=== PATIENT | female | born 1930 | race Caucasian/White ===

== ENCOUNTER 2016-11-30 14:33 | Inpatient (IN) | payer MEDICARE, OTHER ==
[~2016-11-30] VITALS: Ht 162.6 cm; Wt 84.4 kg
[~2016-11-30 14:33] MED LIST: ALLERGY10 M1 PO; ASPIRIN CHEWABL81 MG PO; BUSPIRONE HCL5 MG PO; CALCIUM 600 +1 EAC3 PO; CARBIDOPA-LEVO1 EAC4 PO; CENTRUM SILVER1 EAC1 PO; CEPHALEXIN500 M1 PO; COLACE 100MG C100 MG PO; COREG 3.125M3.125 MG PO; FUROSEMIDE40 MG PO; HYDRALAZINE HCL25 MG PO; IMDUR ER TAB 6060 MG PO; LANTUS INS100 UTS/M1 SQ; LANTUS SC; LIPITOR TAB 2020 MG PO; LOTEMAX5 ML OP; METOPROLOL SUCC25 MG PO; MOVANTIK25 MG PO; NAMENDA XR28 MG PO; NEURONTIN 100100 MG PO; NITROSTAT 0.40.4 MG SL; NOVOLOG SC; OXYBUTYNIN CHLOR5 MG PO; PLAVIX 75 MG TA75 MG PO; PRILOSEC OTC20 MG PO; PROAIR HFA8.5 GM INH; PROTONIX40 MG PO; SPIRONOLACTONE25 MG PO; SYNTHROID25 MCG PO; TYLENOL 325MG325 MG PO; TYLENOL W/CODEIN1 E1 PO; VITAMIN D32000 UNI1 PO
[2016-11-30] MEDS ORDERED: LANTUS SOL100 UNIT/1 SQ (18:08)
[2016-11-30] MEDS ORDERED: MOVANTIK25 MG PO (18:10)
[2016-11-30 19:27] LABS: HEMOGLOBIN 11.5 gm/dl (12.3-15.3); RED BLOOD COUNT 3.76 M/UL (4.00-5.10); WHITE BLOOD COUNT 13.3 K/UL (4.5-11.0)
[2016-12-01 04:13] LABS: HEMOGLOBIN 11.1 gm/dl (12.3-15.3); RED BLOOD COUNT 3.65 M/UL (4.00-5.10); WHITE BLOOD COUNT 14.7 K/UL (4.5-11.0)
[2016-12-01 04:16] LABS: BUN/CREATININE RATIO 14 (0-10)
[2016-12-02 05:36] LABS: HEMOGLOBIN 11.1 gm/dl (12.3-15.3); RED BLOOD COUNT 3.64 M/UL (4.00-5.10); WHITE BLOOD COUNT 12.7 K/UL (4.5-11.0)
[2016-12-03 06:48] LABS: HEMOGLOBIN 11.2 gm/dl (12.3-15.3); RED BLOOD COUNT 3.7 M/UL (4.00-5.10); WHITE BLOOD COUNT 12.4 K/UL (4.5-11.0)
[2016-12-04 05:30] LABS: HEMOGLOBIN 11.3 gm/dl (12.3-15.3); RED BLOOD COUNT 3.73 M/UL (4.00-5.10)
[2016-12-05 07:29] LABS: HEMOGLOBIN 11.5 gm/dl (12.3-15.3); RED BLOOD COUNT 3.83 M/UL (4.00-5.10); WHITE BLOOD COUNT 10.2 K/UL (4.5-11.0)
[2016-12-06 06:25] LABS: HEMOGLOBIN 11.7 gm/dl (12.3-15.3); RED BLOOD COUNT 3.84 M/UL (4.00-5.10); WHITE BLOOD COUNT 12.1 K/UL (4.5-11.0)
[2016-12-07 05:40] LABS: HEMOGLOBIN 11.5 gm/dl (12.3-15.3); RED BLOOD COUNT 3.8 M/UL (4.00-5.10)
[2016-12-08 08:51] LABS: HEMOGLOBIN 12.9 gm/dl (12.3-15.3)
[2016-12-08 08:53] LABS: RED BLOOD COUNT 4.28 M/UL (4.00-5.10); WHITE BLOOD COUNT 12.5 K/UL (4.5-11.0)
[2016-12-08 09:00] LABS: BUN/CREATININE RATIO 16 (0-10)
[2016-12-10 04:42] LABS: HEMOGLOBIN 11.1 gm/dl (12.3-15.3)
[2016-12-10 04:43] LABS: RED BLOOD COUNT 3.59 M/UL (4.00-5.10); WHITE BLOOD COUNT 8.3 K/UL (4.5-11.0)
[2016-12-12 08:26] LABS: HEMOGLOBIN 11.9 gm/dl (12.3-15.3); RED BLOOD COUNT 3.93 M/UL (4.00-5.10); WHITE BLOOD COUNT 8.1 K/UL (4.5-11.0)
[2016-12-13 05:55] LABS: HEMOGLOBIN 11.2 gm/dl (12.3-15.3); RED BLOOD COUNT 3.64 M/UL (4.00-5.10); WHITE BLOOD COUNT 6.4 K/UL (4.5-11.0)
[2016-12-14 03:44] LABS: HEMOGLOBIN 11.8 gm/dl (12.3-15.3); RED BLOOD COUNT 3.93 M/UL (4.00-5.10); WHITE BLOOD COUNT 5.5 K/UL (4.5-11.0)
[2016-12-14 04:03] LABS: BUN/CREATININE RATIO 10 (0-10)
== END 2016-12-14 13:50 | DRG 853 ==
LOC: MED SURG 4 14:33 → M/S 17:58 → ZEROF 12-01 09:00 → M/S 12-01 09:00
PROVIDERS: Family Medicine; Internal Medicine; ADMIT Emergency Medicine
PROC: 0J990ZZ Drainage of Buttock Subcutaneous Tissue and Fascia, Open Approach (ICD-10-PCS; principal; 2016-12-02)
DX: A41.9 Sepsis, unspecified organism (principal); G93.41 Metabolic encephalopathy; L02.31 Cutaneous abscess of buttock; I50.22 Chronic systolic (congestive) heart failure; N17.9 Acute kidney failure, unspecified; I12.9 Hypertensive chronic kidney disease with stage 1 through stage 4 chronic kidney disease, or unspecified chronic kidney disease; R32 Unspecified urinary incontinence; E11.22 Type 2 diabetes mellitus with diabetic chronic kidney disease; E11.649 Type 2 diabetes mellitus with hypoglycemia without coma; F01.50 Vascular dementia, unspecified severity, without behavioral disturbance, psychotic disturbance, mood disturbance, and anxiety; R56.9 Unspecified convulsions; R21 Rash and other nonspecific skin eruption; E87.6 Hypokalemia; R53.81 Other malaise; R45.1 Restlessness and agitation; N18.3 Chronic kidney disease, stage 3 (moderate); D69.6 Thrombocytopenia, unspecified; R41.0 Disorientation, unspecified; M81.0 Age-related osteoporosis without current pathological fracture; E78.5 Hyperlipidemia, unspecified; E03.9 Hypothyroidism, unspecified; I25.10 Atherosclerotic heart disease of native coronary artery without angina pectoris; I25.5 Ischemic cardiomyopathy; M51.16 Intervertebral disc disorders with radiculopathy, lumbar region; J44.9 Chronic obstructive pulmonary disease, unspecified; F41.9 Anxiety disorder, unspecified; I73.9 Peripheral vascular disease, unspecified; G20 Parkinson's disease; Z95.1 Presence of aortocoronary bypass graft; Z95.5 Presence of coronary angioplasty implant and graft; Z96.1 Presence of intraocular lens; Z88.8 Allergy status to other drugs, medicaments and biological substances; Z83.3 Family history of diabetes mellitus; Z82.49 Family history of ischemic heart disease and other diseases of the circulatory system; Z80.8 Family history of malignant neoplasm of other organs or systems; Z82.3 Family history of stroke; Z79.82 Long term (current) use of aspirin; Z79.4 Long term (current) use of insulin; Z79.891 Long term (current) use of opiate analgesic; Z79.899 Other long term (current) drug therapy
CPT/HCPCS: 36415; 36600; 70450; 70551; 71010; 80048; 80053; 82140; 82550; 82553; 82803; 82962; 84484; 85025; 85027; 87040; 87070; 87075; 87205; 93005; 94640; 94664; 95819; G0378; G0379; J1335; J1953; J2270; J3010; J7030; J7050; J7120